=== PATIENT | female | born 1975 | race Two or more races ===

== ENCOUNTER 2017-03-01 11:45 | Day surgery (SDC) | payer OTHER ==
[~2017-03-01] VITALS: Ht 162.6 cm; Wt 62.7 kg
[2017-03-01] MEDS ORDERED: vitamin d (13:11)
[2017-03-01] MEDS ORDERED: vitamin b12 (13:11)
[2017-03-01] MEDS ORDERED: docusate (13:11)
[2017-03-01 13:15] VITALS: Ht 162.6 cm; Wt 62.7 kg
[2017-03-01 13:30] VITALS: BP 125/70; PULSE 71; RESP 14
[2017-03-01] MEDS ORDERED: PROPOFOL 40 ML ONE (15:03)
[2017-03-01] MEDS ORDERED: PROPOFOL 20 ML ONE (15:38)
[2017-03-01 16:05] VITALS: BP 109/61; RESP 20
--- NOTE | 2017-03-01 16:39 | GILP ---
DATE OF PROCEDURE: PROCEDURE: Colonoscopy with biopsies. BRIEF HISTORY AND INDICATIONS: The patient is being evaluated for changes in bowel habits with cons tipation, as well as colorectal cancer screening. PREMEDICATION: Monitored anesthesia care by the anesthesiologist. SURGEON: Jase Sesay MD. INSTRUMENT USED: Olympus colonoscope. PREPARATION: Adequate. TECHNIQUE: After informed consent, with the patient/relatives understanding the procedure, its indic ations potential risks and complications, including but not limited to: allergic reaction, bleeding, perforation, infection, missed lesions and after all pertinent questions were answered to the patie nt's satisfaction, the patient/relatives signed the witnessed informed consent. Following this, premedication was administered slowly IV push by under careful cardiovascular and re spiratory monitoring with pulse oximetry, automatic blood pressure and hospital monitor. Once the sedativ e effect was achieved, the patient was placed in the left lateral decubitus position, digital rectal examination was performed. The colonoscope was then introduced and advanced under visual control th roughout all segments of the colon including: the rectum, sigmoid, descending colon, splenic flexure , transverse colon, hepatic flexure, ascending colon and finally reaching the cecum which was clearl y identified by transillumination, finger indentation and the ileocecal valve. Careful examination o f the mucosa of the lower gastrointestinal tract both on insertion as well as withdrawal of the inst rument disclosed the following findings: Rectal Examination: No evidence of perirectal disease, no masses. Colonic Mucosa: The colonic mucosa is unremarkable throughout. The ileocecal valve was clearly alejandrina ntified and appears unremarkable. The instrument was withdrawn, reexamining the mucosa in detail. No additional abnormalities were noted. Random biopsies were obtained of the right and left side of the colon to rule out microscopic lymphocytic or collagenous colitis. The instrument was then withdrawn, the patient tolerated the procedure well and was transferred out of the Endoscopy Suite awake and in good condition to continue recovery under observation. IMPRESSION: 1. Normal colonic mucosa to cecum. 2. Small internal hemorrhoids. 3. Rule out microscopic lymphocytic or collagenous colitis. Biopsies were obtained. PLAN: The patient will be followed up as an outpatient. A Hemoccult stool testing is recommended an d a screening colonoscopy at age 52 is recommended. Dictated By: JASE SESAY MS/WILLEM Conf#: [id number] DID#: [id number]
--- NOTE | 2017-03-01 16:42 | GILP ---
DATE OF PROCEDURE: 03/01/2017 PROCEDURE: Esophagogastroduodenoscopy with biopsies. BRIEF HISTORY AND INDICATIONS: The patient is being evaluated for dyspepsia. PREMEDICATION: Monitored anesthesia care by anesthesiologist. SURGEON: Jase Sesay MD. INSTRUMENT USED: Olympus panendoscope. TECHNIQUE: After informed consent, with the patient/relatives understanding the procedure, its indic ations, potential risks and complications, including but not limited to: allergic reaction, bleeding , perforation or infection, and after all pertinent questions were answered to the patients satisfac tion, the patient/relatives signed witnessed informed consent. Following this, premedication was ad ministered slowly IV push under careful cardiovascular and respiratory monitoring with pulse oximetr y, automatic blood pressure and child monitor. Once the sedative effect was achieved the patient was place in the left lateral decubitus, the panendoscope was introduced and advanced under visual contr ol. Careful examination of the upper gastrointestinal tract, both on insertion as well as withdrawal of the instrument disclosed the following findings: ESOPHAGUS: The distal esophagus shows erythema and edema of the mucosa of a moderate degree. STOMACH: Upon entrance to the stomach air was insufflated, the gastric garza distended normally. T here is erythema and edema of the mucosa of a moderate degree. Biopsies were obtained to rule out H . pylori infection. PYLORUS: The pylorus appears patent and within normal limits, with no evidence of gastric outlet ob struction. DUODENUM: The duodenal mucosa was carefully examined in the duodenal bulb as well as the second por tion of the duodenum and appears unremarkable with no evidence of duodenitis, ulcer or neoplasm. The instrument was then withdrawn, the patient tolerated the procedure well and was transfer out of the endoscopy suite awake, and in good condition to continue recovery under observation IMPRESSION: 1. Distal esophagitis. 2. Gastritis, rule out Helicobacter pylori infection, biopsies obtained. PLAN: The patient will be treated with PPIs. Pathology will be reviewed as soon as available. Fur ther recommendations will depend on the patient's clinical course as well as review of biopsies. Dictated By: JASE SESAY MS/WILLEM Conf#: [id number] DID#: [id number] CC: JASE SESAY;*EndCC*
== END 2017-03-01 16:36 | disposition home or self-care (01) ==
LOC: GIL 11:45
PROVIDERS: ATTEND Internal Medicine Gastroenterology
DX: Z12.11 Encounter for screening for malignant neoplasm of colon (principal); K63.89 Other specified diseases of intestine; K64.8 Other hemorrhoids; K20.9 Esophagitis, unspecified; K29.70 Gastritis, unspecified, without bleeding
CPT/HCPCS: 43239; 45380; 84703; 88305; 88312; Z7610